=== PATIENT | male | born 1980 | race Caucasian/White ===

== ENCOUNTER 2016-06-09 09:19 | Emergency (ER) | payer OTHER ==
[~2016-06-09] VITALS: Ht 165.1 cm; Wt 70.3 kg
[2016-06-09 09:22] VITALS: BP 132/84
--- NOTE | 2016-06-09 09:42 | ED GENERAL ADULT ---
History of Present Illness General Chief Complaint: Animal/Insect Bite Stated Complaint: ANIMAL BITE Source: patient Exam Limitations: no limitations Vital Signs & Intake/Output Vital Signs & Intake/Output Vital Signs Date Time Temp Pulse Resp B/P Pulse O2 O2 Flow FiO2 Ox Delivery Rate 06/09 0922 96.9 100 16 132/84 96 Room Air Allergies Coded Allergies: No Known Allergies (06/09/16) Triage Note: 35 Y/O MALE STATES HE GOT BIT BY A DOG THIS AM; DOG LIVES IN HIS CONDO COMPLEX BUT HE DOESNT KNOW THE CAR OILER/UNIT OF WHERE IT LIVES. PT UNSURE OF HIS LAST TETANUS VACCINE. BITE WAS TO R ANKLE. Triage Nurses Notes Reviewed? yes HPI: This is a 35-year-old male with no significant past medical history comes in with chief complaint of dog bite. He states that he was walking his dog this morning in his condo complex when one of his neighbors dogs came up and bit him in his malleoli. Patient states that he has not had a tetanus shot "in years." He is also unaware of the vaccination status of the dog was unable to obtain information at the time. Patient states is already on amoxicillin clavulanate secondary to a sinus infection. (RENAN BLAKE MD) Reconcile Medications Amoxicillin/Clavulanate Potass (Amox-Clav 875-125 MG Tablet) 875 MG-125 MG TABLET 1 TAB PO BID ANTIBIOTIC, INFECTION (Reported) (JOHN COLEMAN MD) Past History Travel History Traveled to [place] past 21 day No Medical History Any Pertinent Medical History? none Neurological: NONE EENT: NONE Cardiovascular: NONE Respiratory: NONE Gastrointestinal: NONE Hepatic: NONE Renal: NONE Musculoskeletal: NONE Psychiatric: NONE Endocrine: NONE Blood Disorders: NONE Cancer(s): NONE MANAGER LPN/Reproductive: NONE Surgical History Surgical History: none Psychosocial History What is your primary language Korean Tobacco Use: Never used Family History Hx Contributory? No (RENAN BLAKE MD) Review of Systems Review of Systems Constitutional: Reports: no symptoms. EENTM: Reports: no symptoms. Respiratory: Reports: no symptoms. Cardiovascular: Reports: no symptoms. GI: Reports: no symptoms. Genitourinary: Reports: no symptoms. Musculoskeletal: Reports: muscle pain. Skin: Denies: erythema, lesions. (RENAN BLAKE MD) Review of Systems Neurological/Psychological: Reports: no symptoms. Hematologic/Endocrine: Reports: no symptoms. Immunologic/Allergic: Reports: no symptoms. All Other Systems: Reviewed and Negative (JOHN COLEMAN MD) Physical Exam Physical Exam General Appearance: well developed/nourished, no apparent distress, alert, awake Head: atraumatic, normal appearance Eyes: Bilateral: normal appearance, PERRL. Ears, Nose, Throat: normal pharynx, normal ENT inspection Neck: normal inspection, supple Respiratory: normal breath sounds Cardiovascular: regular rate/rhythm Gastrointestinal: soft, non-tender Back: normal inspection Extremities: normal inspection, injury present, tenderness, PATIENT HAS 2 PUNCTURE WOUNDS AND A SCRAPE ON HIS MEDIAL MALLEOLI OF HIS RIGHT LOWER EXTREMITY. Core Measures ACS in differential dx? No CVA/TIA Diagnosis: No Severe Sepsis Present: No Septic Shock Present: No (RENAN BLAKE MD) Physical Exam Peripheral Pulses: 4+ carotid (R), 4+ carotid (L) Neurologic/Psych: no motor/sensory deficits, awake, alert, oriented x 3 Reflexes: 2+: bicep (R), bicep (L). Lymphatic: no anterior cervical gunjan (JOHN COLEMAN MD) Progress Differential Diagnoses I considered the following diagnoses in my evaluation of the patient: [DOG BITE] Plan of Care: Current Medications Sig/Stephon Start time Last Medication Dose Stop Time Status Admin Tetanus/Diphtheria 0.5 ML ONCE ONE 06/09 944 UNVr Toxoids Adsorbed 06/09 945 (Decavac) Tetanus shot, wound cleaning. I informed patient to call the police to inform the front desk specialist of his count today to check on the vaccination status of the animal prior to administering the rabies series. (RENAN BLAKE MD) Initial ED EKG: none (RENAN BLAKE MD) Differential Diagnoses I considered the following diagnoses in my evaluation of the patient: (JOHN COLEMAN MD) Departure Departure Disposition: HOME OR SELF CARE Condition: Stable Clinical Impression Primary Impression: Dog bite Secondary Impressions: Dog bite of ankle Referrals: UNKNOWN (PCP/Family) Departure Forms: Customer Survey General Discharge Information (RENAN BLAKE MD) Resident Co-Sign Statement Statement: ED Attending supervision documentation- x I saw and evaluated the patient. I have also reviewed all the pertinent lab results and diagnostic results. I agree with the findings and the plan of care as documented in the Resident's documentation. [] I have reviewed the ED Record and agree with the Resident's documentation. [] Additions or exceptions (if any) to the Resident's note and plan are summarized below: [] (JOHN COLEMAN MD) Critical Care Note Critical Care Note Critical Care Time: non-applicable (JOHN COLEMAN MD)
[2016-06-09] MEDS ORDERED: AMOX-CLAV 875-1 EACH PO (09:57)
== END 2016-06-09 10:15 ==
LOC: ERH 09:19
DX: S91.051A Open bite, right ankle, initial encounter (principal); W54.0XXA Bitten by dog, initial encounter
CPT/HCPCS: 90471